=== PATIENT | male | born 1990 | race Two or more races ===

== ENCOUNTER 2024-08-11 22:05 | Emergency (ER) | payer BC ==
[~2024-08-11] VITALS: Ht 193 cm; Wt 95.3 kg
[2024-08-11] MEDS: IBUPROFEN 400 MG TABLET PO ONE (22:50)
[2024-08-11] MEDS ORDERED: IBUPROFEN 400 MG TABLET ONE (22:50)
[2024-08-11 23:29] VITALS: BP 122/80; TEMP 98.3; O2SAT 99
== END 2024-08-11 23:29 | disposition home or self-care (01) ==
LOC: ER 22:11
DX: M25.561 Pain in right knee (principal); X58.XXXA Exposure to other specified factors, initial encounter; Y93.67 Activity, basketball; Y92.89 Other specified places as the place of occurrence of the external cause; Y99.8 Other external cause status
CPT/HCPCS: 73564-TC